=== PATIENT | male | born 1945 | race Caucasian/White ===

== ENCOUNTER 2017-05-09 09:40 | Outpatient (CLI) | payer MEDICARE, MEDICAID ==
[2017-05-09] VITALS (9 sets, daily range): BP systolic 109–123; BP diastolic 70–87; PULSE 69–77; TEMP 97.7–97.9
[~2017-05-09] VITALS: Ht 183 cm; Wt 64.0 kg
[~2017-05-09 09:40] MED LIST: AMBIEN 5MG TABLE5 MG PO; AMITIZA24 MCG PO; ATIVAN 1MG T1 MG/TAB PO; CELEBREX 200MG200 MG PO; CENTRUM SILVER1 TAB PO; COLACE 100100 MG/CAP PO; COUMADIN 5MG5 MG/TAB PO; DESYREL 50MG50 MG PO; FLEXERIL 1010 MG/TAB PO; FLOMAX 0.40.4 MG/CAP PO; FLORINEF ACETA0.1 MG PO; GAS RELIEF 125125 MG PO; KADIAN20 MG PO; LEVOXYL0.075 MG PO; LEVOXYL0.112 MG PO; MIRTAZAPINE7.5 MG PO; MYSOLINE 5050 MG/TAB PO; NEIGHBOR PO; NEXIUM 40MG40 MG PO; NORCO 325 MG-101 TAB PO; PROBIOTIC FORMU1 CAP PO; REGLAN 10MG10 MG/TAB PO; REGLAN 5MG T5 MG/TAB PO; ROXICODONE15 MG PO; XARELTO20 MG PO; ZOFRAN 4MG T4 MG/TAB PO; [UNRECOGNIZED DRUG - OTHER] PO
[2017-05-09] MEDS ORDERED: MS CONTIN 115 MG/TAB PO (10:51)
[2017-05-09] MEDS ORDERED: DAZIDOX10 MG PO (10:55)
== END 2017-05-09 14:13 | disposition home or self-care (01) ==
LOC: COL.CAR 09:40
DX: S22.080A Wedge compression fracture of T11-T12 vertebra, initial encounter for closed fracture (principal); N40.0 Benign prostatic hyperplasia without lower urinary tract symptoms; K21.9 Gastro-esophageal reflux disease without esophagitis; I10 Essential (primary) hypertension; Z86.718 Personal history of other venous thrombosis and embolism; Z79.01 Long term (current) use of anticoagulants
CPT/HCPCS: J2250; J3010; J7120

== ENCOUNTER → 2019-06-13 | Outpatient (CLI) | payer MEDICARE ==
[~2019-06-13] MED LIST changes: +DAZIDOX10 MG PO; +MS CONTIN 115 MG/TAB PO
== END ==
LOC: MHCPAIN 14:56
DX: M53.3 Sacrococcygeal disorders, not elsewhere classified (principal); M96.1 Postlaminectomy syndrome, not elsewhere classified; M47.817 Spondylosis without myelopathy or radiculopathy, lumbosacral region
CPT/HCPCS: G0463

== ENCOUNTER → 2022-06-23 | Outpatient (CLI) | payer MEDICARE | LOC: MHCPAIN 09:50 | DX: M47.896 Other spondylosis, lumbar region (principal); M54.16 Radiculopathy, lumbar region; M96.1 Postlaminectomy syndrome, not elsewhere classified; M51.36 Other intervertebral disc degeneration, lumbar region | CPT/HCPCS: G0463 ==

== ENCOUNTER → 2022-06-24 | Outpatient (CLI) | payer MEDICARE | LOC: MHCPAIN 08:14 | DX: M47.817 Spondylosis without myelopathy or radiculopathy, lumbosacral region (principal); M54.16 Radiculopathy, lumbar region; M53.3 Sacrococcygeal disorders, not elsewhere classified | CPT/HCPCS: J1100; Q9967 ==

== ENCOUNTER → 2022-08-04 | Outpatient (CLI) | payer MEDICARE | LOC: MHCPAIN 07:53 | DX: M54.16 Radiculopathy, lumbar region (principal); M96.1 Postlaminectomy syndrome, not elsewhere classified; M47.896 Other spondylosis, lumbar region; Z93.0 Tracheostomy status | CPT/HCPCS: G0463 ==